=== PATIENT | female | born 1960 | race Caucasian/White ===

== ENCOUNTER → 2020-04-11 | Outpatient (CLI) | payer OTHER | LOC: KOH-I 15:45 | DX: S42.351A Displaced comminuted fracture of shaft of humerus, right arm, initial encounter for closed fracture (principal); S42.201A Unspecified fracture of upper end of right humerus, initial encounter for closed fracture; S42.291A Other displaced fracture of upper end of right humerus, initial encounter for closed fracture; X58.XXXA Exposure to other specified factors, initial encounter | CPT/HCPCS: 73200 ==